=== PATIENT | male | born 1980 | race Caucasian/White ===

== ENCOUNTER 2023-07-09 17:38 | Emergency (ER) | payer BC, SELFPAY ==
[2023-07-09 17:40] VITALS: BP 154/99; PULSE 89; RESP 18; TEMP 36.6; O2SAT 98; BMI 31.9
--- NOTE | 2023-07-09 17:47 | ECG_ITS ---
APPROVED REPORT Exam: Resting ECG HR:83 bpm ECG Measurements Heart Rate 83 AXES TX 132 P 53 QRSd 96 QRS -25 QT 378 T 44 QTc 418 Conclusion SINUS RHYTHM BORDERLINE LEFT AXIS DEVIATION [QRS AXIS < -20] BORDERLINE ECG Electronically signed by : RENETTA CALZADA, 07/09/2023 21:38:03
[2023-07-09 17:49] VITALS: BMI 31.9
--- NOTE | 2023-07-09 17:51 | XR_ITS ---
PROCEDURE INFORMATION: Exam: XR Chest Exam date and time: 07/09/2023 6:01 PM Age: 42 years old Clinical indication: Shortness of breath; Additional info: SOA TECHNIQUE: Imaging protocol: Radiologic exam of the chest. Views: 2 views. COMPARISON: No relevant prior studies available. FINDINGS: Lungs: Clear lungs. Pleural spaces: No pneumothorax. No sizable pleural effusion. Heart/Mediastinum: No cardiomegaly. Bones/joints: Unremarkable. IMPRESSION: Clear lungs.
[2023-07-09 17:58] LABS: Basophils # 0.3 K/mm3 (0-0.2); Basophils % 2.4 % (0.1-2.0); Eosinophils # 0.2 K/mm3 (0.0-0.4); Eosinophils % 2.3 % (0.1-12.0); Hematocrit 52.4 % (42.0-52.0); Hemoglobin 16.8 g/dL (14.1-18.0); Lymphocytes # 2.6 K/mm3 (0.7-4.5); Lymphocytes % 24.8 % (10-50); Mean Corpuscular Hemoglobin 28.9 pg (27.0-31.2); Mean Corpuscular Volume 90.1 fl (80-94); Monocytes # 0.6 K/mm3 (0.1-1.0); Monocytes % 5.9 % (1.7-9.3); Neutrophils # 6.7 K/mm3 (1.8-7.8); Neutrophils % 64.6 % (37.0-80.0); Platelet Count 362 K/mm3 (142-424); Red Blood Count 5.81 M/mm3 (4.60-6.20); Red Cell Distribution Width 13.7 % (11.5-17.5); White Blood Count 10.3 K/mm3 (4.8-10.8)
--- NOTE | 2023-07-09 18:04 | ED_ITS ---
Discharge Plan Disposition Patient Disposition: Home, Self-Care Condition: Good Prescriptions Prescriptions: No Action omeprazole 40 mg Capsule,Delayed Release(Dr/Ec) 40 mg PO DAILY Referrals Follow up/Referrals: Provider,Referral, [Primary Care Provider] - See instructions Activity Restrictions/Add. Instructions Additional Instructions/Restrictions: You were evaluated in the emergency department today. Please follow-up closely with your primary care provider. Return to the emergency department for new or worsening symptoms. Clinical Impressions Clinical Impression: Shortness of breath Stand Alone Forms Stand Alone Forms: Work/School Release Instructions Patient Instructions: DI for Atypical Chest Pain, DI for Shortness of Breath Discharge ED Provider: Eloisa Simmons General Adult HPI General Chief complaint: Shortness of Breath/Dyspnea Stated complaint: soa difficult breathing Time Seen by Provider: 07/09/23 17:54 Mode of Arrival: Ambulatory Source of Information: Patient Limitations: No Limitations Description of Symptoms (Recalled from ER Triage Doc. by RN): pt reports shortness of breath that started last night in the middle of the night, reports history of hiatal hernia and thought it was that causing him issues, but he sat up and moved around and still struggled to take a deep breath without pain, also states he feels like his heart is racing, smokes 1 ppd of cigars History of Present Illness HPI narrative: This patient is a 42-year-old male with history of hiatal hernia presenting to the emergency department for evaluation with concern for shortness of breath. Patient reports that he woke up in the middle the night and felt like he could not get a good breath in. He thought that his hiatal hernia might be in his chest, which he notes has happened before. He notes that he got up, walked around, and his symptoms got a lot better. Symptoms been going on on and off all day today. He notes that it is making him very anxious, and when he gets anxious and worked up he starts to feel more short of breath. He denies any fevers, chills, cough, chest pain, abdominal pain, nausea, vomiting, changes bowel movements, rashes, or swelling. No history of blood clots, clotting disorders, recent surgeries or long travel, or recent immobilizations. He does not use any hormonal medications. Related Data Home Medications Medication Instructions Recorded Confirmed omeprazole 40 mg capsule,delayed 40 mg PO DAILY 07/09/23 07/09/23 release Allergies Allergy/AdvReac Type Severity Reaction Status Date / Time No Known Allergies Allergy Verified 07/09/23 17:54 [facility] Disclaimer: The information contained in this section may have been updated after the patient was seen, as this information can be updated by other users. Social History Smoking Status: Current every day smoker alcohol intake: never current occupational status: employed Travel in the last 8 weeks: None ROS Obtained: Yes All systems reviewed & no additional complaints except as documented Physical Exam General General appearance: alert and in no apparent distress Head Head exam: atraumatic and normocephalic Eye Eye exam: Present normal appearance, PERRL and EOMI ENT ENT exam: Present normal exam, normal oropharynx, mucous membranes moist and normal external ear exam Neck Neck exam: Present normal inspection, full ROM and trachea midline; Absent tenderness Chest Chest inspection: Present normal inspection and symmetric chest wall rise; Absent tenderness Respiratory Respiratory exam: Present normal lung sounds bilaterally; Absent respiratory distress, wheezes, stridor or accessory muscle use Cardiovascular Cardiovascular exam: Present regular rate and normal rhythm Abdominal Exam Abdominal exam: Present soft; Absent distention, tenderness or guarding Extremities Exam Extremities exam: Present normal inspection, full ROM and normal capillary refill; Absent tenderness or edema Back Exam Back exam: Present normal inspection and full ROM; Absent tenderness Neurological Exam Neurological exam: Present alert, oriented X3, CN II-XII intact and normal gait; Absent motor sensory deficit Psychiatric Psychiatric exam: Present normal affect and normal mood Skin Skin exam: Present warm and dry Medical Decision Making Medical Records Medical records reviewed: Yes I reviewed the patient's medical records. Faisal Inquiry Pt receiving controlled substance: No Vital Signs: 07/09/23 17:40 07/09/23 18:30 07/09/23 19:51 Temperature 97.8 F 98.1 F Temperature Source Oral Oral Pulse Rate 87 80 Pulse Rate [Left Radial] 89 Respiratory Rate 18 16 19 Blood Pressure 122/76 138/80 Blood Pressure [Right Arm] 154/99 H Blood Pressure Mean 91 Blood Pressure Mean [Right Arm] 117 Blood Pressure Source Automatic Cuff Blood Pressure Source [Right Arm] Automatic Cuff Blood Pressure Position Sitting Blood Pressure Position [Right Arm] Sitting 02 Sat by Pulse Oximetry 98 95 Oxygen Delivery Method Room Air Room Air Lab Data Lab results reviewed: Yes I reviewed the patient's lab results. Lab Results 07/09/23 17:48: WBC 10.3, RBC 5.81, Hgb 16.8, Hct 52.4 H, MCV 90.1, MCH 28.9, MCHC 32.0, RDW 13.7, Plt Count 362, MPV 8.0, Neut % (Auto) 64.6, Lymph % (Auto) 24.8, [place] % (Auto) 5.9, Eos % (Auto) 2.3, Baso % (Auto) 2.4 H, Neut # (Auto) 6.7, Lymph # (Auto) 2.6, [place] # (Auto) 0.6, Eos # (Auto) 0.2, Baso # (Auto) 0.3 H, D-Dimer 0.35, Sodium 140, Potassium 4.2, Chloride 101, Carbon Dioxide 33 H, Anion Gap 10.2, BUN 21 H, Creatinine 1.00, Estimated Creat Clear 125, Estimated GFR 83, Est GFR ( Amer) 100, Glucose 142 H, Calcium 10.3 H, Total Bilirubin 0.9, AST 33, ALT 31, Alkaline Phosphatase 74, Troponin I < 0.01, Total Protein 8.3 H, Albumin 5.1 H, Globulin 3.2, Albumin/Globulin Ratio 1.6 07/09/23 18:14: SARS-CoV-2 (PCR) Not detected, Influenza A Untype (PCR) Not detected, Influenza Type B (PCR) Not detected 07/09/23 17:48 07/09/23 17:48 Orders (Tests/Meds): ED MEDICATIONS Discontinued Medications Generic Name Dose Route Start Last Admin Trade Name Freq PRN Reason Stop Dose Admin Sodium Chloride 10 ml 07/09/23 17:51 Sodium Chloride 0.9% 10ml Flush Syringe IV 08/08/23 17:50 NEEDED PRN Maintain IV Site ORDERS Category Date Time Status XR chest 2V Stat Exams 07/09/23 17:51 Completed Complete Blood Count Auto Diff Stat Lab 07/09/23 17:48 Completed Comprehensive Metabolic Panel Stat Lab 07/09/23 17:48 Completed D-Dimer Stat Lab 07/09/23 17:48 Completed Rapid PCR Covid and Flu A/B Stat Lab 07/09/23 18:14 Completed Trop I [Troponin I] Stat Lab 07/09/23 17:48 Completed ECG Data Tracing #1: I reviewed this ECG and interpreted as documented below: Normal sinus rhythm with a ventricular rate of [address] changes concerning for ischemia. Normal intervals. Left axis deviation. ECG initial impression date: 07/09/23 ECG initial impression time: 17:50 HEART Score History (anamnesis): Slightly suspicious ECG: Normal Age: <45 years Risk factors: No known risk factors Troponin: </= normal limit HEART Score: 0 Medical Decision Narrative: In summary, this patient is a 42-year-old male presenting to the Emergency Department for evaluation of shortness of breath. Differential diagnoses considered include but are not limited to pneumothorax, pneumonia, pleurisy, anxiety, dysrhythmia. Ruling out the most morbid conditions drove assessment. On exam, the patient is well-appearing and is resting comfortably with normal vital signs on cardiac telemetry. No history of risk factors for DVT or PE. EKG obtained is reassuring. Workup included CBC, CMP, troponin, D-dimer, and chest x-ray. I independently interpreted x-ray prior to the radiologist read and noted no acute focal consolidation, pneumothorax, or large amount of stomach within the chest. Please see their read for final interpretation. Labs were obtained that demonstrated negative troponin, negative D-dimer, and no other acutely concerning abnormalities.. At this time, workup is reassuring. Heart score 0. Vitals are normal on cardiac telemetry. Given reassuring workup and exam, I feel the patient is appropriate for discharge home with instructions for close follow-up with his primary care provider. Strict return precautions were given. Critical Care Critical Care Time Critical Care Time: No
[2023-07-09 18:06] LABS: Chloride 101 mmol/L (98-107)
[2023-07-09 18:07] LABS: Potassium 4.2 mmoL/L (3.5-5.1); Sodium 140 mmol/L (136-145)
[2023-07-09 18:09] LABS: Alanine Aminotransferase 31 U/L (12-78); Albumin Level 5.1 g/dl (3.5-5.0); Albumin/Globulin Ratio 1.6 (1.1-1.8); Alkaline Phosphatase 74 U/L (38-126); Anion Gap 10.2 mEq/L (5-15); Aspartate Amino Transferase 33 U/L (17-59); Bilirubin,Total 0.9 mg/dl (0.2-1.3); Blood Urea Nitrogen 21 mg/dl (9-20); Calcium 10.3 mg/dl (8.4-10.2); Carbon Dioxide 33 mmol/L (22.0-30.0); Creatinine Clearance Estimated 125 mL/min (50-200); Estimated Glomerular Filt Rate 83 ml/min (>60); GFR (African American) 100 ML/MIN (>60); Globulin 3.2 g/dL (1.3-3.2); Glucose 142 mg/dl (74-100); Total Protein,Serum 8.3 g/dl (6.3-8.2)
[2023-07-09 18:19] LABS: Coronavirus 19, PCR Not Detected (NotDetected); Influenza A, PCR Not Detected (NotDetected); Influenza B, PCR Not Detected (NotDetected)
[2023-07-09 18:30] VITALS: BP 122/76; PULSE 87; RESP 16; O2SAT 95
--- NOTE | 2023-07-09 18:40 | PC.NURSE ---
Rounded on pt. No needs voiced at this time at this time. Call light within reach
[2023-07-09 18:46] LABS: D-Dimer 0.35 ug/mL (0.0-0.5)
[2023-07-09 19:10] LABS: Troponin I < 0.01 ng/ml (0.00-0.034)
[2023-07-09 19:51] VITALS: BP 138/80; PULSE 80; RESP 19; TEMP 36.7; O2SAT 99
== END 2023-07-09 19:57 | disposition home or self-care (01) ==
PROVIDERS: Emergency Provider Emergency Medicine
DX: R06.02 Shortness of breath (principal); F17.210 Nicotine dependence, cigarettes, uncomplicated
CPT/HCPCS: 71046; 80053; 84484; 85025; 85378; 87636; 93005; 99284